=== PATIENT | male | born 2000 | race Caucasian/White ===

== ENCOUNTER 2023-12-19 20:32 | Emergency (ER) | payer SELFPAY ==
--- NOTE | ~2023-12-19 | XR_ITS ---
EXAMINATION: XR SHOULDER, LEFT CLINICAL INFORMATION: Shoulder pain COMPARISON: None available. TECHNIQUE: Three views of the left shoulder. FINDINGS: The bones and soft tissues are normal. No fracture. Glenohumeral and acromioclavicular alignment is anatomic with normal joint space. No abnormal soft tissue calcifications. XR/XR shoulder LT min 2V IMPRESSION: Normal left shoulder. Electronically signed by: Jose Carlos Avilez MD 12/19/2023 10:01 PM EDT
[2023-12-19 20:38] VITALS: BP 134/81; PULSE 88; RESP 16; TEMP 37.1; O2SAT 95; BMI 25.1
--- NOTE | 2023-12-19 20:40 | ED_ITS ---
HPI - General Adult General Chief complaint: Extremity Injury, Upper Stated complaint: work injury, L shoulder pain Time Seen by Provider: 12/20/23 01:20 Source: patient Mode of arrival: ambulatory Limitations: no limitations History of Present Illness ED Provider: Dr. Wen Thayer HPI narrative: Patient comes to the emergency room complaining of left deltoid twitching. Patient states that he does a lot of work overhead and after work he noticed that there was twitching on the lateral aspect of his arm. Patient denies numbness tingling, no loss of motor function or weakness. Related Data Previous Rx's ?Medication ?Instructions ?Recorded cephalexin 500 mg capsule 500 mg PO TID #30 caps 10/09/21 ibuprofen 600 mg tablet 600 mg PO TID #14 tabs 12/20/23 Allergies Allergy/AdvReac Type Severity Reaction Status Date / Time No Known Allergies Allergy Verified 12/19/23 20:40 Review of Systems Review of Systems: Constitutional : No Weight loss, No Fever, No Chills, No Night Sweats, No Fatigue, No Malaise ENT/Mouth : No Hearing loss, No Ear Pain, No Nasal Congestion, No Sinus Pain, No Hoarseness, No sore throat, No Rhinorrhea, No Swallowing Difficulty Eyes: No Eye Pain, No Swelling, No Redness, No Foreign Body, No Discharge, No Vision Changes Cardiovascular : No Chest Pain, No SOB, No Dyspnea on Exertion, No Orthopnea, No Edema, No Palpitations Respiratory : No Cough, No Sputum, No Wheezing, No Smoke Exposure, No Dyspnea Gastrointestinal : No Nausea, No Vomiting, No Diarrhea, No Constipation, No abdominal Pain, No Hematochezia, No Melena Genitourinary : no irregular bleeding, No Dysuria, No Urinary Frequency, No Hematuria, No Urinary Incontinence, No Urgency, No Flank Pain, No Urinary Flow Changes, No Hesitancy Musculoskeletal : Complaining of twitching of the deltoid on the left arm No joint pain, No Myalgias, No Joint Swelling Skin : No Skin Lesions, No rash Neuro : No Weakness, No Numbness, No Paresthesias, No Loss of Consciousness, No Dizziness, No Headache Psych : No Anxiety/Panic, No Depression, No SI/HI/AH/VH, No Social Issues, Heme/Lymph: No Bruising, No Bleeding,No Lymphadenopathy Endocrine : No Polyuria, No Polydipsia, No Temperature Intolerance PMFSH Social History Social History Advance Directives: No Advance Directives Information Provided: Yes Physical Exam ED Vital Signs: Vital Signs - 24 hr 12/19/23 20:38 12/20/23 00:58 Temperature 98.7 F 97.3 F Pulse Rate 88 67 Respiratory Rate 16 18 Blood Pressure 134/81 111/63 Pulse Oximetry 95 100 Oxygen Delivery Method Room Air Room Air BMI result Body Mass Index 25.1 Const Other: Appearance: Alert. Oriented X3. No acute distress. Eyes: Pupils equal, round and reactive to light. ENT: Pharynx normal. Neck: Normal inspection. Neck supple. No lymph nodes noted. No crepitus CVS: Normal heart rate and rhythm. Pulses normal. Normal S1 and S2 Respiratory: No respiratory distress. Breath sounds normal. No Wheezing. No rales Abdomen: Soft and nontender. No rigidity. No distention. Skin: Skin warm and dry. Normal skin color. Normal skin turgor. Extremities: No lower extremity edema. No Lacerations. No Rash Neuro: Oriented X 3. No motor deficit. No sensory deficit. Moving all extremities. No slurred speech. CN 2 through 12 grossly intact Psych: calm, cooperative, normal affect Course Course Course Narrative: RME, this is a rapid medical exam performed by Demetrius Arceo please refer to [facility] provider for complete H&P- 23-year-old male presents for evaluation of left shoulder pain. His pain started 3 days ago. 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 There was no traumatic injury. Plan for x-rays Medical Decision Making Medical Decision Making MDM Narrative: X-ray of the shoulder: Normal -I discussed with the patient that he is experiencing muscle spasms -patient declined medication at this time. Independent Interpretation I performed an independent interpretation of an: Plain X-Ray Radiology Impression Discussion of test interpretation with radiology: I have reviewed the radiologist's reading. Radiologist Impression: The bones and soft tissues are normal. No fracture. Glenohumeral and acromioclavicular alignment is anatomic with normal joint space. No abnormal soft tissue calcifications. XR/XR shoulder LT min 2V IMPRESSION: Normal left shoulder. Discharge Plan Discharge Clinical Impression: Muscle spasm of left shoulder Patient Disposition: Home, Self-Care Instructions: Muscle Spasm (ED) Additional Instructions: Please follow-up with your primary care physician tomorrow. If you have any worsening or new symptoms, please return to the emergency room or call 911 Prescriptions: New ibuprofen 600 mg tablet 600 mg PO TID Qty: 14 0RF No Action cephalexin 500 mg capsule 500 mg PO TID Qty: 30 0RF Print Language: Divehi
--- OUTSIDE RECORDS SUMMARY | 2023-12-20 00:49 | XMS_ITS | Continuity of Care Document ---
Author Organization [facility] al Address [address] [place] [address]- Care Team Providers Care Chip Separator Name Role Phone Not on Staff, PCP Primary Care Physician Unavail able Encounter [facility] Date(s): 10/12/21 - 10/12/[address] [address]- Discharge Disposition: A-D/C Home Attending Physician: Cecille ARMSTRONG, Last Melendez Admitting Physician: Last Oden MD Referring Physician: Not on Staff, Referring MD Allergies, Adverse Reactions, Alerts No Known Allergies Immunizations Given and Recorded Vaccine Date Status Refusal Reason Meningococcal Conjugate Vaccine 12/13/14 Recorded Meningococcal Conjugate Vaccine 12/01/10 Recorded Human Papillomavirus Vaccine 12/13/14 Recorded Human Papillomavirus Vaccine 10/30/13 Recorded Human Papillomavirus Vaccine 12/23/11 Recorded Hepatitis A Pediatric Vaccine 12/01/10 Recorded tetanus/diphtheria/pertussis, acel(Tdap) 12/01/10 Recorded Varicella Virus Vaccine 06/06/08 Recorded Varicella Virus Vaccine 08/04/00 Recorded diphtheria/tetanus/pertussis, acel(DTaP) 10/24/04 Recorded diphtheria/tetanus/pertussis, acel(DTaP) 10/27/99 Recorded diphtheria/tetanus/pertussis, acel(DTaP) 06/19/99 Recorded diphtheria/tetanus/pertussis, acel(DTaP) 01/19/99 Recorded diphtheria/tetanus/pertussis, acel(DTaP) 98 Recorded Poliovirus Vaccine, Inactivated 12/04/02 Recorded Poliovirus Vaccine, Inactivated 06/19/99 Recorded Measles/Mumps/Rubella Virus Vaccine 12/04/02 Recor ded Measles/Mumps/Rubella Virus Vaccine 10/27/99 Recor ded hepatitis B pediatric vaccine 06/19/99 Recorded hepatitis B pediatric vaccine 01/19/99 Recorded hepatitis B pediatric vaccine 98 Recorded Medications No Known Medications Vital Signs Most recent to oldest [Reference Range]: 1 2 Height 170 cm (10/12/21 12:15 PM) Weight 74 kg (10/12/21 12:15 PM) Oxygen Saturation [94-100 %] 98 % (10/12/21 12:15 PM) Pulse Rate [55-90 bpm] 63 bpm (10/12/21 1:00 PM) 74 bpm (10/12/21 12:15 PM) Blood Pressure [90-138/55-84 mm Hg] 112/ 69mm Hg (10/12/21 1:00 PM) 115/72mm Hg (10/12/21 12:15 PM) Respiratory Rate [16-30 br/min] 18 br/mi n (10/12/21 1:00 PM) 18 br/min (10/12/21 12:15 PM) Temperature [96.8-100.4 DegF] 98.2 DegF (10/12/21 12:15 PM) Temperature Route Oral (10/12/21 12:15 PM) Dry Weight 74 kg (10/12/21 12:15 PM) Dry Weight Obtained Via Standing scale (10/12/21 12:15 PM) Social History Social History Type Response Smoking Status Never smoker entered on: 09/16/14 Sex
[2023-12-20 00:58] VITALS: BP 111/63; PULSE 67; RESP 18; TEMP 36.3; O2SAT 100
--- NOTE | 2023-12-20 01:09 | PC.NURSE ---
hot pack given to pt for shoulder pain while awaiting MD
== END 2023-12-20 01:31 | disposition home or self-care (01) ==
PROVIDERS: Emergency Provider Emergency Medicine
DX: M62.838 Other muscle spasm (principal); M25.512 Pain in left shoulder
CPT/HCPCS: 73030; 99283

== ENCOUNTER 2024-10-30 14:58 | Emergency (ER) | payer OTHER, SELFPAY ==
[2024-10-30 15:02] VITALS: BP 132/69; PULSE 103; RESP 18; TEMP 36.8; O2SAT 97; BMI 23.5
--- NOTE | 2024-10-30 15:02 | ED_ITS ---
HPI - General Adult General Chief complaint: Wound/Laceration Stated complaint: left leg wound Time Seen by Provider: 10/30/24 15:05 Source: patient Mode of arrival: ambulatory Limitations: no limitations History of Present Illness ED Provider: Sofya Levin PA-C HPI narrative: Patient is a 24 year old male with no past medical history presenting a with a left lower leg laceration. 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 He reports no pain and says he was able to control the bleeding and clean the wound prior to arrival. He does not know his last tetanus shot. He denies fever, chills, chest pain, shortness of breath. Onset (ago): minute(s) Location: lower extremity Related Data Previous Rx's ?Medication ?Instructions ?Recorded cephalexin 500 mg capsule 500 mg PO TID #30 caps 10/09 ibuprofen 600 mg tablet 600 mg PO TID #14 tabs 12/19 amoxicillin 875 mg-potassium 1 tab PO BID 5 days #10 t abs 10/30/24 clavulanate 125 mg tablet Allergies Allergy/AdvReac Type Severity Reaction Status Date / Time No Known Allergies Allergy Verified 10/30/24 15:04 Review of Systems 2 Constitutional: Constitutional: Reports as per HPI Eyes: Eyes: Reports as per HPI ENT: Reports as per HPI Cardiovascular: Cardiovascular: Reports as per HPI Respiratory: Respiratory: Reports as per HPI Gastrointestinal: Gastrointestinal: Reports as per HPI Genitourinary: Genitourinary: Reports as per HPI Musculoskeletal: Comments: left lower leg laceration Integumentary/Breasts: Skin/Breast: Reports as per HPI Neurologic: Reports as per HPI Psychiatric: Psychiatric: Reports as per HPI Endocrine: Endocrine: Reports as per HPI Hematologic/Lymphatic: Hematologic/Lymphatic: Reports as per HPI Allergic/Immunologic: Allergic/Immunologic: Reports as per HPI [facility] Past Medical History Attestation statement: The following information was validated with the patient. Source: old records reviewed and nursing notes reviewed Social History Social History Advance Directives: No Advance Directives Information Provided: Yes Do you have a plan to hurt others: No Plan Physical Exam ED Vital Signs: Vital Signs - 24 hr 10/30/24 15:02 10/30/24 15:11 10/30/24 15:55 Temperature 98.2 F 97.9 F 97.9 F Pulse Rate 103 H 98 98 Respiratory Rate 18 16 16 Blood Pressure 132/69 112/72 112/72 Pulse Oximetry 97 94 94 Oxygen Delivery Method Room Air Room Air Room Air BMI result Body Mass Index 23.5 Const General: cooperative, no acute distress, alert and awake Nutritional Appearance: well nourished Orientation/consciousness: patient oriented x3 HENMT Head: Yes normal to inspection and Yes atraumatic Ears: hearing grossly normal bilaterally and external ears normal General nose exam: Normal external nose present, no nasal discharge noted and no epistaxis Face and sinus: Yes normal facial exam, No abrasion and No laceration Mouth: Normal oral and palatal mucosa present, no drooling and no muffled voice Eyes General: appearance normal, both eyes and all related structures Periorbital: periorbital findings normal Eyelids: Yes eyelids normal Conjunctivae: conjunctivae normal Pupils: Equal, round and reactive pupils present EOM: EOMs intact bilaterally Neck Neck: Yes normal visual inspection and Yes full ROM Resp Effort & Inspection: normal respiratory effort and able to speak in complete sentences Neuro General: patient oriented x3, moves all extremities and CN's II-XI intact bilaterally Cranial nerves: Yes Equal, round and reactive pupils present Cognition (Neuro): normal cognition Extrem Other: General: Yes full ROM and Yes capillary refill normal Left lower extremity: lower leg Details: laceration (mid tibia) Psych Appearance: grossly normal Mental Status: mental status grossly normal Affect: normal affect Attitude: cooperative Thought process: Normal thought process present Thought content: Normal thought content present Insight: Good insight present (Psych) Medications Administered Discontinued Medications Generic Name Dose Route Start Last Admin Trade Name Freq PRN Reason Stop Dose Admin Diphtheria/Tetanus/Acell Pertussis 0.5 ml 10/30/24 15:05 10/30/24 15:49 Diphth,Pertus(Acell),Tet Adult 0.5 Ml Syringe IM 10/30/24 15:06 0.5 ml .ONCE ONE Administration Lidocaine HCl 10 ml 10/30/24 15:05 10/30/24 15:17 Lidocaine Hcl 1 % Mpf 5 Ml Vial SUBCUT 10/30/24 15:06 10 ml ONCE ONE Administration Procedures Laceration Laceration 1: Site: lower extremity Side (If applicable): left Size (cm): 2 Description: linear Depth: simple, single layer Local Anesthetic: lidocaine 1% Amount of anesthesia used (mL): 5 Pre-repair: wound explored, irrigated extensively and deep structures intact Skin layer closed with: other (prolene) Size (cm): 6-0 Number of sutures: 4 Technique: simple, interrupted Medical Decision Making Medical Decision Making MDM Narrative: Patient is a 24 year old assigned male at with no reported medical history presenting to the emergency department today with a left lower leg laceration. Patient's physical exam was as noted in the physical exam portion of this note. I explained my physical exam findings to the patient. I answered all questions asked by the patient. Patient was brought up to date on his tetanus status. Patient's laceration was repaired with 4 sutures, per procedure note, without incident. Patient's left lower leg PMS was intact prior to and after laceration repair. I stressed the importance of the patient taking his medication as directed (either prescribed or as the over the counter packaging recommends). I stressed the importance of the patient following up with his primary care provider. I stressed the importance of the patient returning to the emergency department immediately if his symptoms were to worsen or if he were to develop any dizziness, shortness of breath, difficulty breathing, chest pain, blurry vision, loss of vision, nausea, vomiting, abdominal pain, fever, chills, back pain, or any other complaints. Patient verbalized agreement and understanding with this treatment plan and discharge. Differential Diagnosis Differential Diagnoses: The differential diagnosis associated with the presentation includes Left lower leg laceration Admission/Observation Consideration of admission/observation: Escalation of care including admission/observation considered Patient would have been admitted to the hospital had his clinical presentation warranted hospital admission. Tests considered The following testing was considered but not selected: I considered obtaining an x-ray of the left lower leg however, the patient's clinical presentation and mechanism of injury did not warrant this. Prescription Management I considered prescription management with: Antibiotic (Given patient's mechanism of injury, prescribed prophylactic antibiotic. ) Discharge Plan Discharge Clinical Impression: Laceration Patient Disposition: Home, Self-Care Instructions: Care For Your Stitches (DC) Additional Instructions: Your sutures (4) should be removed in 7-10 days. Do NOT soak the affected area. Avoid all public bodies of water (lakes, reza, pools, oceans, etc). Perform daily wound checks and dressing changes. Given the mechanism of your injury, you have been prescribed an antibiotic. Please take this as directed. Given this was a work place injury, you should follow up with the work connection team. IF you are prescribed home medications and/or you are taking over the counter medications at home - it is very important you continue to do so as prescribed / directed unless told otherwise. Follow up with a primary care provider. Return to the emergency department immediately if your symptoms worsen or if you develop any numbness, tingling, dizziness, shortness of breath, difficulty breathing, chest pain, blurry vision, loss of vision, nausea, vomiting, abdominal pain, fever, chills, back pain, or any other complaints. L If you do not have a primary care provider - call any of the below numbers to establish and follow up with a primary care provider. [facility] ([place]) [phone] [place] [address], [address] [facility] ([facility]) [phone] [place] [address], [address] [facility], [address] [facility] ([address]) [phone] [place] [address], [address] [facility], [address] [facility] ([place]) [phone] [place] [address] [address] [facility], [address] [facility] [phone] [place] [address], [address] Please see the information below about our Patient Portal. If you are not yet enrolled in the [facility] Patient Portal, you will receive an enrollment email invitation following your visit to any [facility] setting. You may also self-enroll in the Patient Portal by visiting our website: [email or web address] The following information is required to access the Patient Portal: - Your [facility] Medical Record Number - Your personal home email address (must match what is in your electronic medical record, Registration staff can assist with this) - Name - Date of Capabilities of the Patient Portal: - Message some providers - View upcoming appointments - Access your health summary, medical history, and visit history - View current conditions and allergies - View procedure and lab results - View your medications, including guidelines, side effects, and precautions - Complete pre-appointment questionnaires requested by your provider - Ready summary reports of your office visits and procedures To access the Patient Portal Mobile Jaycee, follow these directions: - Search [employer] in the Jaycee Store or [employer] Store - Download the Jaycee - Search for [facility] - Enter your login/password Prescriptions: New amoxicillin-pot clavulanate 875-125 mg tablet 1 tab PO BID 5 Days Qty: 10 0RF No Action ibuprofen 600 mg tablet 600 mg PO TID Qty: 14 0RF cephalexin 500 mg capsule 500 mg PO TID Qty: 30 0RF Referrals: Work Connection [Provider Group] Referral Note: Given this was a work place injury, call to establish and follow up with the work connection team. Interventions: ED Discharge Assessment Last Done: 10/30/24 15:55 Discharge Date/Time: 10/30/24 15:58 Print Language: Setswana
[2024-10-30 15:11] VITALS: BP 112/72; PULSE 98; RESP 16; TEMP 36.6; O2SAT 94
[2024-10-30] MEDS: Lidocaine HCl 1 % MPF 5 ML VIAL 10 ML SUBCUT (15:17)
[2024-10-30] MEDS: Diphth,Pertus(ACell),Tet Adult 0.5 ML SYRINGE IM (15:49)
[2024-10-30 15:55] VITALS: BP 112/72; PULSE 98; RESP 16; TEMP 36.6; O2SAT 94
== END 2024-10-30 15:58 | disposition home or self-care (01) ==
PROVIDERS: Emergency Provider Emergency Medicine
DX: S81.812A Laceration without foreign body, left lower leg, initial encounter (principal); W27.8XXA Contact with other nonpowered hand tool, initial encounter; M79.605 Pain in left leg; Y93.H3 Activity, building and construction; Y92.9 Unspecified place or not applicable; Y99.0 Civilian activity done for income or pay; Z23 Encounter for immunization
CPT/HCPCS: 12001; 90471; 90715; 99283; 99284; J2003

== ENCOUNTER 2024-11-12 10:25 | Outpatient (REF) | payer OTHER, SELFPAY ==
[2024-11-12 11:45] LABS: Alanine Aminotransferase 30 U/L (0-40); Albumin Level 4.8 g/dL (3.5-5.0); Alkaline Phosphatase 79 U/L (39-117); Anion Gap 11 (12-20); Aspartate Amino Transferase 28 U/L (5-37); Blood Urea Nitrogen 11 mg/dL (9-16); Calcium 9.7 mg/dL (8.4-10.2); Carbon Dioxide 30 mmol/L (22-29); Chloride 103 mmol/L (96-108); Cholesterol 185 mg/dL (<200); Estimated Glomerular Filt Rate > 60; HDL Cholesterol 61 mg/dL (>40); Potassium 4.3 mmol/L (3.3-5.1); Sodium 140 mmol/L (135-145); Total Protein 7.6 g/dL (6.5-8.0); Triglycerides 85 mg/dL (<150)
[2024-11-12 12:10] LABS: Syphilis Screen Nonreactive (Nonreactive)
[2024-11-12 12:25] LABS: HIV Num 1 0.06 S/CO (0.00-0.99); ~HepC Num1 0.08 S/CO (0.00-0.79); ~Hepatitis C Antibody Nonreactive (Nonreactive)
[2024-11-13 04:53] LABS: CT PCR Urine NOT DETECTED (Not Detect.); NG PCR Urine NOT DETECTED (Not Detect.)
== END 2024-11-12 10:26 | disposition home or self-care (01) ==
LOC: HO.HHCL 10:25
PROVIDERS: Family Medicine; PCP Nurse Practitioner Family; Visit Provider Nurse Practitioner Family
DX: Z00.00 Encounter for general adult medical examination without abnormal findings (principal); Z11.3 Encounter for screening for infections with a predominantly sexual mode of transmission; Z13.220 Encounter for screening for lipoid disorders; Z13.6 Encounter for screening for cardiovascular disorders; Z11.8 Encounter for screening for other infectious and parasitic diseases; R61 Generalized hyperhidrosis
CPT/HCPCS: 36415; 80053; 80061; 84443; 86780; 86803; 87389; 87491; 87591